=== PATIENT | male | born 1965 | race Caucasian/White ===

== ENCOUNTER 2016-10-03 18:18 | Emergency (ER) | payer BC ==
[2016-10-03 18:23] VITALS: RESP 16
--- NOTE | 2016-10-03 19:01 | DX ---
Right elbow series 3 views 1840 hours. History: Posterior elbow swelling and pain. Recent fall while shoveling earlier today. Findings: Osseous structures are intact without fracture. There is moderate soft tissue swelling post erior to the elbow joint. There is no evidence of effusion within the elbow joint. No fractures are s een or abnormal lytic or sclerotic osseous lesions. There are no osteophytes appreciated. Impression: 1. No acute osseous abnormality seen right elbow. 2. Moderate soft tissue swelling posterior to the elbow joint.
[2016-10-03] MEDS ORDERED: TDAP ADULT 0.5 ML VIAL (BOOSTRIX) IM ONE (19:03)
--- NOTE | 2016-10-03 19:03 | EDPHY ---
H & P Smoking Status: Never smoked Time Seen by Provider: 10/03/16 19:00 HPI/ROS: HPI: 51-year-old male presents to emergency department with chief concern right elbow injury. Occurred at noon today when he slipped on the ice and fell backwards, landing on his right elbow. Did not strike her head. Denies dizziness, headache, visual changes, neck pain, back pain, right shoulder, right wrist or right hand pain. No weakness, numbness, or tingling of the right upper extremity. Unable to fully flex the right arm. He is right-hand dominant. ROS:10 point review of systems is negative other than as stated in HPI (Elise Kevin) Physical Exam: Vital signs stable, reviewed by me General: Awake, alert, calm, cooperative. No acute distress. Head: Normalocephalic. Atraumatic. Face: Atraumatic EENT: PERRLA. EOMI. Neck: Supple, nontender. No midline tenderness, full ROM. Respiratory: Breathing unlabored. CV: Chest nontender, atraumatic. Distal pulses 2+. Brisk cap refill all extremities. GI: Deferred Neuro: Alert. Oriented x 3. Sensation intact all extremities. Back: No midline thoracic or lumbar tenderness. Skin: Skin warm, dry, 1 cm laceration posterior right elbow. Significant swelling of the right posterior elbow Extremities: No discomfort to palpation of the right shoulder, wrist, or hand. Full ROM. Right elbow with laceration posteriorly, significant swelling posteriorly with discomfort to palpation of the olecranon process, inability to flex arm past 120 (Elise Kevin) Constitutional: Initial Vital Signs Temperature (C) 36.4 C 10/03/16 18:21 Heart Rate 88 10/03/16 18:21 Respiratory Rate 16 10/03/16 18:21 Blood Pressure 129/90 H 10/03/16 18:21 O2 Sat (%) 97 10/03/16 18:21 O2 Delivery Mode Room Air Allergies/Adverse Reactions: No Known Allergies Allergy (Unverified 10/03/16 18:23) Home Medications: Medication Instructions Recorded Hydrocodone/Acetaminophen [Cadiz 1 each PO Q4 PRN #10 tablet 10/03/16 5/325 (*)] Medical Decision Making - Diagnostics Imaging: Right elbow series 3 views 1840 hours. History: Posterior elbow swelling and pain. Recent fall while shoveling earlier today. Findings: Osseous structures are intact without fracture. There is moderate soft tissue swelling posterior to the elbow joint. There is no evidence of effusion within the elbow joint. No fractures are seen or abnormal lytic or sclerotic osseous lesions. There are no osteophytes appreciated. Impression: 1. No acute osseous abnormality seen right elbow. 2. Moderate soft tissue swelling posterior to the elbow joint. Dictated By: Hussain Dodge MD (Elise Kevin) Procedures: After verbal consent was obtained and risks and benefits explained, the laceration was anesthetized using a total of 3 ml of 0.5% Marcaine with epinephrine. Lac then irrigated per protocol by oxygen therapy technician. Under sterile procedure, the wound was explored to its base with a gloved finger and no foreign body was identified. No deep structure identified. Wound was then draped and sterile procedure followed during laceration repair. Wound was repaired using #4, 5-0 sutures. After repair, laceration cleansed, bacitracin and sterile dressing applied. Procedure performed by myself. Procedure was simple. Pt tolerated the procedure well. (Elise Kevin) ED Course/Re-evaluation: The patient was evaluated and managed by the lactation consultant. My cosignature indicates that I reviewed the chart and I agree with the findings and plan of care as documented. I am the secondary supervising physician. (Jaky Kaminski) 51-year-old gentleman presents to emergency department with right elbow injury. There is a laceration posterior to the right elbow. X-rays negative however this patient is unable to flex the right arm. Laceration repaired. Patient referred orthopedist. Placed in Dequan wrap. Neurovascular status intact after application (Elise Kevin) Differential Diagnosis: Contusion, fracture, dislocation, bursitis (Elise Kevin) - Data Points Medications Given: Discontinued Medications Diphtheria/Tetanus/Acell Pertussis (Boostrix) 0.5 ml IM .ONCE ONE Stop: 10/03/16 19:04 Last Admin: 10/03/16 19:32 Dose: 0.5 ml Departure - Departure Disposition: Home, Routine, Self-Care Clinical Impression: Traumatic bursitis elbow, Laceration Contusion of elbow, right Qualifiers: Encounter type: initial encounter Qualifier Code: (S50.01XA) Contusion of right elbow, initial encounter Condition: Good Instructions: Hydrocodone/Acetaminophen (By mouth), Laceration (ED), Elbow Bursitis (ED), Contusion in Adults (ED) Additional Instructions: Plan: ice every 1 hour for 20 minutes while awake for the the next 2-3 days You may use 600 mg of ibuprofen every 6 hours for fever, inflammation, or pain. Always take ibuprofen with food and stay well hydrated while taking. Do not exceed the maximum allowable dose in a 24 hour period which is 2400 mg. For severe pain may use 1 Cadiz every 4-6 hours as needed--Never drink or drive while taking this medication. This medication impairs decision making capacity so do not work or sign important documents while taking. This medication its constipating so drink plenty of fluids and consider an [id number] stool softener such as docusate sodium (Colace) while taking this medication. This medication has addictive properties. You should use the least amount for the shortest amount of time. [facility] do not refill narcotic pain medication prescriptions. This is a hospital policy. You will need to follow up as indicated for recheck for further narcotic refills. Use Dequan wrap for compression Follow up with orthopedist Dr. huber by Saturday--When you call to schedule appointment, please let the office know you are an "ER follow up" appointment" For laceration: After 24 hours remove dressing. Then allow warm, soapy water to run over site daily. Remove dried blood with a moist Q-tip. This will help ensure he does not develop an infection, and assist in suture removal. With a 2nd Q-tip apply thin layer of antibiotic ointment. Return in 10 days for suture removal Referrals: NONE *PRIMARY CARE P,. [Primary Care Provider] - As per Instructions Chuckie Huber MD [Medical Doctor] - As per Instructions Prescriptions: Hydrocodone/Acetaminophen [Cadiz 5/325 (*)] 1 each PO Q4 PRN #10 tablet PRN Reason: severe pain
[2016-10-03 20:08] VITALS: BP 122/84; PULSE 86; TEMP 97.9; O2SAT 96
== END 2016-10-03 20:08 | disposition home or self-care (01) ==
PROC: 0HQDXZZ Repair Right Lower Arm Skin, External Approach (ICD-10-PCS; principal; 2016-10-03)
DX: S51.011A Laceration without foreign body of right elbow, initial encounter (principal); S50.01XA Contusion of right elbow, initial encounter; Z23 Encounter for immunization; W00.0XXA Fall on same level due to ice and snow, initial encounter